=== PATIENT | female | born 1940 | race Caucasian/White ===

== ENCOUNTER 2016-05-21 02:39 | Inpatient (IN) | payer OTHER, MEDICARE ==
[~2016-05-21] VITALS: Ht 265.4 cm; Wt 121.6 kg
[~2016-05-21 02:39] MED LIST: AMLODIPINE10 MG PO; ATORVASTATIN CA20 MG PO; FERROUS SULFAT325 M3; FISH OIL CONCEN1 SGL PO; LOPRESSOR 25MG25 MG PO; MULTIVITAMIN1 TAB PO; NORVASC 5MG TAB5 MG PO; OMEPRAZOLE40 MG PO
--- NOTE | 2016-05-21 09:57 | Operative Report ---
Operative/Inv Procedure Report Surgery Date: 05/21/16 Name of Procedure: Left total knee arthroplasty Pre-Operative Diagnosis: Left knee primary osteoarthritis Post-Operative Diagnosis: Same Estimated Blood Loss: less than 50ml Surgeon/Journal Entry Audit Clerk: SKY BRADSHAW,Barrie WOOD Anesthesia: laryngeal mask airway Implants: [place] triathlon total knee system-size 3 femur, size 3 tibia, 11 mm cruciate retaining polyethylene, 29 mm symmetrical patella Drains: None Specimens: Femoral, tibial, patellar bone Microbiology: Urine Tourniquet: 60 minutes Complications: None Condition: Stable Operative Indication: Patient is a 76-year-old woman with a long history of bilateral knee pain. She underwent conservative management including medications and injections. Her x- rays revealed end-stage degenerative changes. Patient tolerated symptoms for a long period of time but over time as a symptoms worsened and interfere with normal activities of daily living, she wished to proceed with total knee arthroplasty after the conservative measures provided only short-term relief at best. Risks, benefits and expectations of the surgical procedure including but not limited to persistent knee pain, need for subsequent surgery, infection, DVT , injury to blood vessel or nerve, anesthesia risks were discussed and patient wished to proceed with surgical management Operative/Procedure Note Note: Patient was brought to the operating room and transferred to the operating table. Once under appropriate anesthesia the left lower extremity was prepped and draped in standard fashion. Preoperative IV antibiotics were given prophylactically. The leg was elevated exsanguinated and tourniquet was inflated to 300 mm of pressure. This was later changed to 350 because of the venous nature of the tourniquet and the size of patient's leg. A standard anterior incision was made for an anticipated medial parapatellar approach to the knee. The incision was taken down sharply to the underlying retinaculum. A medial retinacular approach was used with a minimal extension into the quadriceps tendon. Severe end-stage degenerative changes of all 3 compartments were noted. Osteophytes were excised. Patella was subluxed and the knee was flexed into position. Dissection was taken around the medial corner of the knee in a conservative fashion. A retractor was placed there. Another retractor was placed laterally. I used the drill to enter the intramedullary canal for the intramedullary guide for the femoral cut. Soft tissues were protected. The distal femoral cutting jig was pinned in position for a 6 valgus cut. The appropriate thickness cut was made. The femur was then sized to a size 3. The size 3 cutting jig was pinned in place with the appropriate external rotation. Cuts were made while protecting the soft tissues. I was satisfied with the preparation of the femur. I then turned my attention to the tibia. Again soft tissue protectors were placed and replaced as well as a PCL retractor. The PCL was recessed for balancing purposes. I then made my tibial cut based on my external tibial alignment guide. I reproduce patient's posterior slope based on my intraoperative findings and preoperative x-rays/templating. The cut was made. I then sized the tibia to a size 3. I did a trial reduction with a size 3 tibia 9 mm insert and a 3 femur. I was satisfied with the symmetry of the flexion and extension gap. It would likely need an 11 mm insert as a definitive treatment. I then turned my attention to the patella. The patella was measured and the appropriate thickness was removed and then replaced with a 29 mm patella. The 3 lug holes were drilled. I took the knee through range of motion. I marked my rotation of the tibia and drilled my 2 lug holes for the femur. All components were removed. Copious irrigation the knee followed. I finished preparation of the tibia with the appropriate sized tibial punch. This was based on my previously determined rotation of the tibial component. I then removed all instrumentation from the knee. Copious irrigation of the knee followed. I plug the distal femoral intramedullary hole with the fashioned anterior chamfer cut from the femur. This would minimize postoperative hemarthrosis and swelling. Copious irrigation of the bony surfaces was then done. Cement was being mixed on the back table. Patient was already on the TXA protocol for hemostasis purposes. Once the cement was ready I applied to the dry clean bony surfaces of the tibia. The definitive size 3 tibia was impacted in place. Excess cement was removed with curettes. Cement was applied to the dry clean bony surfaces of the femur. Excess cement was removed with curettes. The trial polyethylene was impacted in place and the knee was taken out into full extension. Cement was applied to the dry clean bony surfaces of the patella. The size 29 patella was impacted in place and excess cement was removed with a knife. As the cement was hardening I did a periarticular pericapsular injection of a cocktail which included ropivacaine with epinephrine and Toradol for postoperative pain and inflammation management. Once the cement was hardening took the knee through range of motion. Small pieces of excess cement were removed. I was satisfied with the trialing of the 11 mm insert. I had full extension area and no evidence of flexion or extension instability. No mid flexion stability. Full flexion to gravity as much as the size of the thigh allowed. I then removed the trial and impacted definitive size 11 mm cruciate retaining polyethylene into place. The locking mechanism was confirmed. Copious irrigation the knee followed. Copious irrigation of the tibial tray was done prior to placement definitive polyethylene insert in order to avoid having any soft tissue, bone fragments or cement fragments within the tibial tray. Copious irrigation the knee followed. Tourniquet was deflated at 60 minutes. Hemostasis was obtained. There was no need for a drain. Excellent patellofemoral tracking. Closure was then started with the medial parapatellar approach with interrupted #1 Vicryl sutures. Every level of closure was followed by copious irrigation. Patient had very deep subcutaneous layer. This was closed in 2 layers due to the depth of the wound with 2-0 Vicryl suture. Skin was closed with 3-0 Vicryl suture with the knee in flexion. Appropriate dressings were applied and patient was awakened and taken the recovery room in good condition. No intraoperative complications. Blood loss was less than 50 mL Discharge Disposition: PACU
--- NOTE | 2016-05-21 13:12 | PN- Orthopedic ---
Subjective Subjective: The patient was seen this afternoon postoperatively. She reports her pain is under adequate control has no other complaints at the current time. Objective Vital Signs and I&Os Vital signs: Blood pressure 139/71, pulse 65, temperature 97.9, O2 sat tray she 96% on 2 L via nasal cannula I's and O's: 2000 ML's in of lactated Ringer's/510 ML's out of urine via Salazar catheter/EBL 200 Physical Exam: Gen.: Alert and in no obvious distress Skin: Warm and dry Cardiac: S1 and S2 regular Pulmonary: Bilateral breath sounds were equal and decreased at bases Extremities: Bilateral lower extremities were warm without calf tenderness. Gross motor and sensory were intact. Left lower extremity surgical dressing was clean, dry, and intact. There is an On-Q pain pump in place. Assessment/Plan Assessment/Plan Assessment: 76-year-old female status post left total knee arthroplasty. Postoperative the patient is progressing as expected and her pain is under adequate control. Plan: Out of bed with physical therapy patient is weightbearing as tolerated Continue current pain regiment Resume home medications Start Coumadin 5 mg by mouth 1 dose tonight Follow-up morning laboratory studies and we dose Coumadin for goal INR between 2 and 3 Advance diet as tolerated Keep IV fluids and Salazar catheter until the morning Incentive spirometry Core Measures/Miscellaneous Salazar Catheter Date In: 05/21/16 Still Needed? Yes Venous Thromboembolism VTE Risk Factors: Age > 40, Obesity, Surgery VTE Contraindications: No Contraindications VTE Diagnosis: No Beta Emmanuel Is Beta Emmanuel a Home Med? No Antibiotics Is Patient on Antibiotics? Yes If Yes: prophylaxis
[2016-05-21 13:51] VITALS: BP 170/0
[2016-05-21] MEDS ORDERED: COUMADIN5 M2 PO (14:44)
[2016-05-21] MEDS ORDERED: PERCOCET 5-3251 EACH PO (14:45)
--- NOTE | 2016-05-21 14:50 | Patient Discharge Instructions ---
Discharge Instructions General Discharge Information You were seen/treated for: Left knee pain secondary to primary unilateral osteoarthritis You had these procedures: Left total knee replacement Watch for these problems: Increasing pain, redness, warmth, swelling. Drainage of any type from incision. Inability to bear weight on left leg. Fever greater than 101.5. Do not soak the wound: Yes No bath, but you may shower: Yes Other wound care: Keep wound clean and dry, no ointments of any type on incision. Special Instructions: Anticoagulation: You'll be taking a blood thinning medication called Coumadin. Another name for this medication is warfarin. The dose of this medication is subject to change daily. It is based on blood work called INR. Your INR will be tested twice weekly. Please await specific instructions regarding daily dose from Vic Abraham MD prior to taking this medication. Diet Continue normal diet: Yes Recommended Diet: Regular Additional DIET Information: Advance as tolerated Activity Full Activity/No Limits: No Activity Self Limited: Yes Pounds, do NOT lift more than: 10 Additional ACTIVITY Info: Weight-bear as tolerated Acute Coronary Syndrome Inclusion Criteria At DC or during hospital stay patient has or had the following: ACS DIAGNOSIS No Discharge Core Measures Meds if any: Prescribed or Continued at Discharge Meds if any: NOT Prescribed or Continued at Discharge Congestive Heart Failure Inclusion Criteria At DC or during hospital stay patient has or had the following: CHF DIAGNOSIS No Discharge Core Measures Meds if any: Prescribed or Continued at Discharge Meds if any: NOT Prescribed or Continued at Discharge Cerebrovascular accident Inclusion Criteria At DC or during hospital stay patient has or had the following: CVA/TIA Diagnosis No Discharge Core Measures Meds if any: Prescribed or Continued at Discharge Meds if any: NOT Prescribed or Continued at Discharge Venous thromboembolism Inclusion Criteria VTE Diagnosis No VTE Type NONE VTE Confirmed by (Test) NONE Discharge Core Measures - Per Current guidelines, there needs to be overlap - treatment for the first 5 days of Warfarin therapy. - If discharged on Warfarin prior to 5 days of - overlap therapy, the patient will need to be - assessed for post discharge needs including - *Post discharge parental anticoagulation - *Warfarin and/or parental anticoagulation education - *Follow up date to check INR post discharge At least 5 days overlap therapy as Inpatient No Meds if any: Prescribed or Continued at Discharge Note: Overlap Therapy is Warfarin and Anticoagulant Meds if any: NOT Prescribed or Continued at Discharge
--- NOTE | 2016-05-21 14:54 | Surgical Discharge Summary ---
Visit Information Visit Dates Admission Date: 05/21/16 Discharge Date: 05/24/2016 History of Present Illness Chief Complaint: Left knee pain Medical History Cardiovascular: HTN, HIGH CHOL Gastrointestinal: hiatal hernia Cancer(s): [employer]/Reproductive: HYSTERECTOMY History of MRSA: No History of VRE: No History of CDIFF: No Isolation History: Standard Pneumonia Vaccine: 01/18/11 Influenza Vaccine: 05/09/16 Surgical History Pertinent Surgical History: non-contributory Family History Relations & Conditions If Any: BROTHER FH: myocardial infarction SISTER FH: myocardial infarction SISTER FH: ovarian cancer SISTER FH: stomach cancer Psychosocial History Who Do You Live With? Patient/Self Services at Home: None What is Your Primary Language? Telugu Review of Systems: See H&P Hospital Course Course Attending Physician: SKY BRADSHAW,VIC Primary Care Physician: DIEGO GORDON MD Hospital Course: Patient was admitted to the hospital on 05/21/2016 for an elective left total knee replacement. She tolerated the procedure well. She was transferred to a general surgical floor. Her diet was advanced and tolerated. Her vital signs were stable and within normal limits. She voided spontaneously. She moved her bowels. Her pain was well controlled with oral pain medication. She was evaluated and treated by physical therapy. She was deemed appropriate for discharge. Allergies: Coded Allergies: NO KNOWN ALLERGIES (05/18/16) Disposition Summary Disposition Principal Diagnosis: Left knee unilateral primary osteoarthritis Additional Diagnosis: None Discharge Disposition: SNF Discharge Instructions General Discharge Information Code Status: Full Code Patient's Diet: Regular, advance as tolerated Patient's Activity: Weight-bear as tolerated Follow-Up Instructions/Appts: Please contact Vic Abraham MD's office to arrange and/or confirm follow -up appointment. He would like for you to be seen in his office in 2-4 weeks from date of surgery. Medications at Discharge Discharge Medications: Continue taking these medications: Atorvastatin Calcium (Lipitor) 20 MG TABLET 0.5 Tablet ORAL DAILY Qty = 30 Instructions: HOLD: NPO Comments: Last Taken:04/29/14 Time:5PM Multivitamin (Multiple Vitamins) 1 EACH TABLET 1 Tablet ORAL DAILY Comments: Last Taken:04/30/14 Time:1000 Amlodipine (Norvasc 5MG Tab) 5 MG TABLET 1 Tablet ORAL DAILY Days = 30 Comments: Last Taken:04/30/14 Time:1000 Ferrous Sulfate (Ferrous Sulfate) 325 MG (65 MG IRON) TABLET Comments: NOT GIVEN IN HOSPITAL Start taking the following new medications: Warfarin Sodium (Coumadin) 5 MG TABLET 1 Tablet ORAL DAILY Qty = 30 No Refills Instructions: DOSE SUBJECT TO CHANGE DAILY, OBTAIN SPECIFIC INSTRUCTIONS PRIOR TO TAKING Comments: Last Taken: 05/23/16 Time: 5:00 PM Oxycodone HCl/Acetaminophen (Percocet 5-325 MG Tablet) 5 MG-325 MG TABLET 1-2 Tablet ORAL EVERY 4-6 HOURS as needed for PAIN Qty = 36 No Refills
[2016-05-21 21:53] VITALS: BP 126/72
[2016-05-22 07:05] VITALS: BP 126/56; BP 127/68
--- NOTE | 2016-05-22 07:43 | PN- Orthopedic ---
Subjective Subjective: NAEO. Patient without new c/o. Pain controlled. Denies numbness/tingling in LLE. Tolerating diet without emesis. Patient did have nausea yesterday evening. OOB with PTThea Salazar dc'd, has yet to void. Denies CP/SOB. Objective Vital Signs and I&Os Vital Signs Date Time Temp Pulse Resp B/P Pulse O2 O2 Flow FiO2 Ox Delivery Rate 05/22 07 98.1 79 20 126/56 95 Room Air 05/22 0705 98.0 80 20 127/68 93 Room Air 05/21 2153 98.4 89 19 126/72 92 05/21 1351 97.5 78 18 170/0 93 Room Air Room Air Intake & Output 05/22 0800 05/22 0000 05/21 1600 05/21 0800 05/21 0000 05/20 1600 Intake Total 800 800 Output Total 1600 550 Balance -800 250 Intake, IV 600 600 Intake, Oral 200 200 Output, Urine 1600 550 Patient 268 lb Weight Physical Exam: General: NAD, comfortable, A&Ox3 Chest: NRD, breathing comfortably on RA. RRR. Abdomen: soft, nontender, nondistended. Ext: Left knee dressing clean dry and intact. On-Q pump in place left thigh. Left lower extremity compartments soft. No calve swelling/TTP, neurovascularly intact bilateral lower extremities Current Medications: Current Medications Sig/Tammy Start time Last Medication Dose Route Stop Time Status Admin Al Hydroxide/Mg 30 ML Q6P PRN 05/21 1430 AC Hydroxide PO Amlodipine Besylate 10 MG DAILY 05/22 1000 AC PO Atorvastatin Calcium 10 MG 1700 05/21 1700 DC PO Atorvastatin Calcium 10 MG 1700 05/21 1700 AC 05/21 PO 2017 Cefazolin Sodium 2,000 MG ONCE 05/21 0000 DC IV 05/21 2359 Dextrose/Lactated 1,000 ML Q13H 05/21 1430 DC 05/21 Ringer's IV 2017 Docusate Sodium 100 MG DAILY NEEDED PRN 05/21 1430 AC PO Morphine Sulfate 2 MG Q3P PRN 05/21 1430 AC IV Morphine Sulfate 4 MG Q3P PRN 05/21 1430 AC IV Ondansetron HCl 4 MG Q6P PRN 05/21 1430 AC 05/21 IV 1608 Oxycodone/ 1 TAB Q4P PRN 05/21 1430 AC Acetaminophen PO Oxycodone/ 2 TAB Q4P PRN 05/21 1430 AC 05/22 Acetaminophen PO 0601 Patient Medication 1 ED .STK-MED ONE 05/21 1407 DC Teaching ED 05/21 1408 Polyethylene Glycol 17 GM DAILY NEEDED PRN 05/21 1430 AC PO Ropivacaine 500 ML Q48H 05/21 1400 AC ON-Q Ball 1 BAG INJ Ropivacaine 500 ML ONCE ONE 05/21 0900 DC ON-Q Ball 1 BAG INJ 05/23 2329 Senna/Docusate Sodium 2 TAB AT BEDTIME NEED.. 05/21 1430 AC PO Vancomycin HCl 1,500 MG ONCE ONE 05/21 1945 DC 05/21 Dextrose/Water 500 ML IV 05/21 2144 2127 Vancomycin HCl 1,500 MG ONCE ONE 05/21 1900 DC Dextrose/Water 250 ML IV 05/21 1959 Vancomycin HCl 1,000 MG ONCE ONE 05/21 0715 DC Dextrose/Water 250 ML IV 05/21 0814 Warfarin Sodium 5 MG COUMADIN 1700 ONE 05/21 1700 DC 05/21 PO 05/21 1701 2016 Results Last 48 Hours of Labs: Laboratory Tests 05/22 0603 Chemistry Sodium Pending Potassium Pending Chloride Pending Carbon Dioxide Pending Anion Gap Pending BUN Pending Creatinine Pending BUN/Creatinine Ratio Pending Coagulation PT Pending INR Pending Hematology CBC w Diff Pending WBC Pending RBC Pending Hgb Pending Hct Pending MCV Pending MCH Pending RDW Pending Plt Count Pending MPV Pending PUBS MCHC Pending Assessment/Plan Assessment/Plan 76yo F POD#1 s/p left TKA. AVSS, patient stable. - Pain control - OOB with PT, WBAT - PRN zofran - DC IVF - I/O's - f/u void - f/u a.m. labs - Dose coumadin for INR 2-3 - continue On-Q pump - Plan for STR POD#3 - Will d/w attending Core Measures/Miscellaneous Salazar Catheter Date In: 05/21/16 Venous Thromboembolism VTE Risk Factors: Age > 40, Obesity, Surgery VTE Contraindications: No Contraindications VTE Diagnosis: No Beta Emmanuel Is Beta Emmanuel a Home Med? No Antibiotics Is Patient on Antibiotics? No
[2016-05-22 08:26] LABS: PT 11.8 SEC (9.4-12.5)
[2016-05-22 08:28] LABS: ABSOLUTE BASOPHIL COUNT 0 /CUMM (0.0-0.2); ABSOLUTE EOSINOPHIL COUNT 0 /CUMM (0.0-0.7); ABSOLUTE GRANULOCYTE CT 13.2 /CUMM (1.4-6.5); ABSOLUTE LYMPH COUNT 1.3 /CUMM (1.2-3.4); ABSOLUTE MONOCYTE COUNT 1.2 /CUMM (0.10-0.60); BASOPHIL % 0 % (0.0-2.0); EOSINOPHIL % 0 % (0-5); GRANULOCYTE % 84.1 % (42.2-75.2); HEMATOCRIT 41.4 % (37-47); MEAN CORPUSCULAR HGB 30.4 PG (27.0-31.0); MEAN CORPUSCULAR HGB CONC 32.8 G/DL (33.0-37.0); MEAN CORPUSCULAR VOLUME 92.7 FL (81.0-99.0); MEAN PLATELET VOLUME 7.6 FL (7.4-10.4); PLATELET COUNT 274 /CUMM (130-400); RBC DISTRIBUTION WIDTH 14.2 % (11.5-14.5); RED BLOOD CELL CT 4.46 /CUMM (4.20-5.40)
[2016-05-22 09:39] LABS: WHITE BLOOD CELL COUNT 15.7 /CUMM (4.8-10.8)
[2016-05-22 14:24] VITALS: BP 141/58
[2016-05-22 23:10] VITALS: BP 163/82
--- NOTE | 2016-05-23 06:59 | PN- Orthopedic ---
See Addendum Subjective Subjective: The patient was seen this morning postoperatively day #2. She reports that her pain is under adequate control and has no other complaints at the current time. Objective Vital Signs and I&Os Vital Signs Date Time Temp Pulse Resp B/P Pulse O2 O2 Flow FiO2 Ox Delivery Rate 05/22 2310 99.0 88 20 163/82 92 Room Air 05/22 1424 98.7 78 20 141/58 93 Room Air 05/22 1004 80 127/68 05/22 0705 98.1 79 20 126/56 95 Room Air 05/22 0705 98.0 80 20 127/68 93 Room Air Intake & Output 05/23 0800 05/23 0000 05/22 1600 05/22 0800 05/22 0000 05/21 1600 Intake Total 730 800 800 Output Total 811 771 8981 550 Balance -400 480 -800 250 Intake, IV 10 600 600 Intake, Oral 720 200 200 Number 0 Bowel Movements Output, Urine 111 966 8825 550 Patient 268 lb Weight Physical Exam: Gen.: Alert and in no obvious distress Skin: Warm and dry Extremities: Bilateral lower extremities warm without calf tenderness. Gross motor and sensory are intact. Left knee surgical dressing was changed and incision is dry and healing well without signs of infection. Assessment/Plan Assessment/Plan Assessment: 76-year-old female status post left total knee arthroplasty postoperative day #2. The patient is progressing as expected and her pain is under adequate control. Plan: Continue to work with physical therapy Follow-up morning laboratory studies and we dose Coumadin to reach an INR in 2 and 3 Continue current pain regiment GI and DVT prophylaxis Daily dry dressing change Incentive spirometry Core Measures/Miscellaneous Salazar Catheter Date In: 05/21/16 Venous Thromboembolism VTE Risk Factors: Age > 40, Obesity, Surgery VTE Contraindications: No Contraindications VTE Diagnosis: No Beta Emmanuel Is Beta Emmanuel a Home Med? No Antibiotics Is Patient on Antibiotics? No
[2016-05-23 07:15] VITALS: BP 147/75
[2016-05-23 08:01] LABS: ABSOLUTE BASOPHIL COUNT 0 /CUMM (0.0-0.2); ABSOLUTE EOSINOPHIL COUNT 0.4 /CUMM (0.0-0.7); ABSOLUTE GRANULOCYTE CT 9.5 /CUMM (1.4-6.5); ABSOLUTE LYMPH COUNT 1.2 /CUMM (1.2-3.4); ABSOLUTE MONOCYTE COUNT 1.3 /CUMM (0.10-0.60); BASOPHIL % 0.1 % (0.0-2.0); EOSINOPHIL % 3.1 % (0-5); HEMATOCRIT 41.2 % (37-47); MEAN CORPUSCULAR HGB 30.5 PG (27.0-31.0); MEAN CORPUSCULAR HGB CONC 33.2 G/DL (33.0-37.0); MEAN CORPUSCULAR VOLUME 91.8 FL (81.0-99.0); MEAN PLATELET VOLUME 7.9 FL (7.4-10.4); PLATELET COUNT 231 /CUMM (130-400); RBC DISTRIBUTION WIDTH 14.2 % (11.5-14.5); RED BLOOD CELL CT 4.49 /CUMM (4.20-5.40); WHITE BLOOD CELL COUNT 12.4 /CUMM (4.8-10.8)
[2016-05-23 08:23] LABS: PT 13.7 SEC (9.4-12.5)
--- NOTE | 2016-05-23 10:27 | RADIOLOGY REPORT ---
EXAMINATION: XR KNEE, LEFT CLINICAL INFORMATION: Left total knee arthroplasty. COMPARISON: None recent. TECHNIQUE: Two views of the left knee. FINDINGS: Although the crosstable lateral view is not a true lateral projection, the prosthetic knee replacement is in the normally expected position. No complications are seen. IMPRESSION: Normal total knee replacement. No complications.
[2016-05-23 14:20] VITALS: BP 144/64
[2016-05-23 22:00] VITALS: BP 142/74
[2016-05-24 06:55] VITALS: BP 131/68
--- NOTE | 2016-05-24 07:07 | PN- Orthopedic ---
Subjective Subjective: The patient was seen this morning postoperatively day #3. She reports that her pain is under adequate control has no other complaints at the current time. Objective Vital Signs and I&Os Vital Signs Date Time Temp Pulse Resp B/P Pulse O2 O2 Flow FiO2 Ox Delivery Rate 05/24 0655 98.5 89 18 131/68 93 Room Air 05/23 2200 98.6 83 18 142/74 92 / 1520 Room Air Room Air 05/23 1420 98.6 84 20 144/64 93 Room Air 05/23 1110 150/70 05/23 0715 98.8 85 20 147/75 93 Room Air Intake & Output 05/24 0800 / 0000 /15 1600 / 0800 05/23 0000 14 1600 Intake Total 120 240 350 730 Output Total 200 600 300 400 250 Balance -80 -360 350 -300 -400 480 Intake, IV 10 Intake, Oral 120 240 350 720 Number 0 Bowel Movements Output, Urine 200 600 300 400 250 Physical Exam: Gen.: Alert and in no obvious distress Skin: Warm and dry Extremities: Bilateral lower extremities are warm without calf tenderness. Gross motor and sensory are intact. Left knee incision is dry with surgical clips in place and no sign of infection. Assessment/Plan Assessment/Plan Assessment: 76-year-old female status post left total knee arthroplasty postoperative day #3. The patient is progressing as expected and her pain is under adequate control. Plan: Follow-up morning laboratory studies and a dose Coumadin for an INR between 2 and 3 Continue to work with physical therapy Incentive spirometry GI and DVT prophylaxis Daily dry dressing change Dulcolax suppository 1 for constipation Continue current pain regiment Short-term rehabilitation today Core Measures/Miscellaneous Salazar Catheter Date In: 05/21/16 Venous Thromboembolism VTE Risk Factors: Age > 40, Obesity, Surgery VTE Contraindications: No Contraindications VTE Diagnosis: No Beta Emmanuel Is Beta Emmanuel a Home Med? No Antibiotics Is Patient on Antibiotics? No
[2016-05-24 08:15] LABS: ABSOLUTE BASOPHIL COUNT 0 /CUMM (0.0-0.2); ABSOLUTE EOSINOPHIL COUNT 0.4 /CUMM (0.0-0.7); ABSOLUTE GRANULOCYTE CT 8.8 /CUMM (1.4-6.5); ABSOLUTE MONOCYTE COUNT 1.2 /CUMM (0.10-0.60); BASOPHIL % 0 % (0.0-2.0); EOSINOPHIL % 3.4 % (0-5); GRANULOCYTE % 77.2 % (42.2-75.2); HEMATOCRIT 38.6 % (37-47); MEAN CORPUSCULAR HGB 30.5 PG (27.0-31.0); MEAN CORPUSCULAR HGB CONC 33.3 G/DL (33.0-37.0); MEAN CORPUSCULAR VOLUME 91.6 FL (81.0-99.0); MEAN PLATELET VOLUME 7.9 FL (7.4-10.4); PLATELET COUNT 232 /CUMM (130-400); RBC DISTRIBUTION WIDTH 14.2 % (11.5-14.5); RED BLOOD CELL CT 4.22 /CUMM (4.20-5.40); WHITE BLOOD CELL COUNT 11.5 /CUMM (4.8-10.8)
[2016-05-24 08:44] LABS: PT 17.5 SEC (9.4-12.5)
[2016-05-24 14:50] VITALS: BP 158/70
[2016-05-24 16:02] VITALS: BP 158/70
[2016-05-24 16:21] VITALS: BP 158/70
== END 2016-05-24 16:29 | DRG 470 ==
LOC: ENRESERVDT → ENRESERVTM → 2NB 02:39 → SDA 02:39 → ENPENDDIS 02:39 → 2NB 13:27
PROVIDERS: Physician Assistant; Physician Assistant Surgical; ADMIT Orthopaedic Surgery
PROC: 0SRD0J9 Replacement of Left Knee Joint with Synthetic Substitute, Cemented, Open Approach (ICD-10-PCS; principal; 2016-05-21)
DX: M17.12 Unilateral primary osteoarthritis, left knee (principal); E66.01 Morbid (severe) obesity due to excess calories; I10 Essential (primary) hypertension; E78.00 Pure hypercholesterolemia, unspecified; Z85.42 Personal history of malignant neoplasm of other parts of uterus
CPT/HCPCS: 2NBP; 36415; 73560-LT; 82436; 87086; 88305; 97110-GO; 97116-GO; 97161-GP; 97530-GO; C1713; J0131; J0171; J0690; J1885; J2405; J2795; J3101; J3370; J7060

== ENCOUNTER → 2017-10-31 | Day surgery (SDC) | payer OTHER, MEDICARE ==
[~2017-10-31] VITALS: Ht 172.7 cm; Wt 123.4 kg
[~2017-10-31] MED LIST changes: +COUMADIN5 M2 PO; +PERCOCET 5-3251 EACH PO
--- NOTE | 2017-10-31 11:43 | Operative Report ---
Operative/Inv Procedure Report Surgery Date: 10/31/17 Name of Procedure: Cataract extraction with intraocular lens implantation right eye Pre-Operative Diagnosis: Age-related cataract right eye Post-Operative Diagnosis: Same Estimated Blood Loss: none Surgeon/Oil And Gas Specialist: Mark BRADSHAW,Benigno Sanchez Anesthesia: local monitored anesthesi Complications: None Operative/Procedure Note Note: Preoperatively the patient was noted to have 20/60 vision in the right eye . The risks, benefits, and alternatives to surgery were discussed at length with the patient. Informed consent was obtained. The patient was brought to the operating room where the right eye was prepped and draped in the normal sterile fashion. A speculum was placed on the right eye with good exposure. A stab incision was made using a paracentesis blade. Intracameral lidocaine was placed. Viscoelastic was used to form the anterior chamber. A clear corneal incision was made using keratome blade. A continuous curvilinear capsulorrhexis was made using a cystotome needle followed by Utrata forceps. There was no extension of the rhexis. Hydrodissection was performed using balanced salt solution. The cataract was removed using a stop and chop technique. Residual cortex was removed using coaxial irrigation and aspiration. The capsule was polished using irrigation and aspiration and the posterior capsule was cleaned using a balanced salt solution jet. There was no residual lens material inside the eye. The capsular bag was reformed using viscoelastic. An intraocular lens [id number] of power 21.5 was verified and confirmed. It was loaded into an injector and injected into the eye. The lens was placed entirely within the capsular bag. Viscoelastic was evacuated using irrigation and aspiration. The wounds were stromally hydrated and the eye filled to physiologic pressure using balanced salt solution. Intracameral cefuroxime was placed. Speculum was removed and a shield was placed on the eye. The patient was brought to the recovery area without incident. Instructions were given to follow-up the next day for routine postoperative care.
== END ==
LOC: STS 01:21
DX: H25.9 Unspecified age-related cataract (principal); I10 Essential (primary) hypertension; M19.90 Unspecified osteoarthritis, unspecified site
CPT/HCPCS: J2250; V2632